=== PATIENT | male | born 1960 | race Caucasian/White ===

== ENCOUNTER 2019-11-29 20:15 | Observation (INO) | payer OTHER ==
[~2019-11-29] VITALS: Ht 170.2 cm; Wt 70.5 kg
[~2019-11-29 20:15] MED LIST: DIAZ5 PO; HYDACE5 PO
[2019-11-29 21:37] LABS: BASOPHILS ABSOLUTE AUTO 0.02 K/mm3 (0.00-0.23); BASOPHILS PERCENT AUTO 0 % (0-2); Hematocrit 39.9 % (37.0-53.0); Hemoglobin 12.8 g/dL (13.5-17.5); Mean Corpuscular HGB 33.2 pg (26.0-34.0); Mean Corpuscular HGB Conc 32.1 g/dL (31.5-36.5); Mean Corpuscular Volume 104 fL (80-100); Mean Platelet Volume 12.3 fL (9.1-12.4); RDW Coefficient Variation 15.2 % (11.7-14.2); RDW Standard Deviation 58.4 fL (35.1-46.3); Red Blood Cell Count 3.85 M/mm3 (4.30-5.90)
[2019-11-29 21:40] LABS: EOSINOPHILS PERCENT AUTO 0 % (0-6); IMMATURE GRAN ABSOLUTE AUTO 0.08 K/mm3 (0.00-0.10); IMMATURE GRAN PERCENT AUTO 1 % (0-1); LYMPHOCYTES ABSOLUTE AUTO 0.42 K/mm3 (0.84-5.20); LYMPHOCYTES PERCENT AUTO 7 % (21-46); MONOCYTES ABSOLUTE AUTO 0.67 K/mm3 (0.16-1.47); MONOCYTES PERCENT AUTO 11 % (4-13); NEUTROPHILS ABSOLUTE AUTO 5.21 K/mm3 (1.96-9.15); NEUTROPHILS PERCENT AUTO 81 % (41-73); Platelet Count 25 K/mm3 (150-400)
[2019-11-29 21:49] LABS: International Normalized Ratio 2.08; Prothrombin Time Results 21.4 Sec (9.7-11.5)
[2019-11-29 21:55] LABS: Alanine Aminotransfer (ALT/SGP 42 U/L (12-78); Albumin/Globulin Ratio 0.4 (0.8-1.8); Alk Phos 91 U/L (50-136); Anion Gap 7 mmol/L (6-16); Aspartate Aminotrans (AST/SGOT 70 U/L (12-37); Blood Urea Nitrogen 10 mg/dL (8-24); Bun/Creatinine Ratio 11.3 (12.0-20.0); CO2, Blood 25 mmol/L (21-32); Chloride, Blood 103 mmol/L (98-108); Creatinine, Blood 0.89 mg/dL (0.60-1.20); Globulin, Blood 4.7 g/dL (2.2-4.0); Glomerular Filtration Rate >60 (60-); Glucose, Blood 125 mg/dL (70-99); Potassium, Blood 3.6 mmol/L (3.5-5.5); Sodium, Blood 135 mmol/L (136-145); Total Protein, Blood 6.7 g/dL (6.4-8.2)
--- NOTE | 2019-11-30 03:12 | NUR ---
PATIENT IS A NEW ADMIT FROM THE ED. FOUR PERSON TRANSFER FROM [facility] TO BED. AXOX 3 AND ONE TO TWO ASSIST TO BSC. ON 2L O2 NC. PATIENT REPORTS LEFT HIP PAIN. CLEAR LIQUID DIET. PATIENT ORIENTED TO ROOM AND CALL LIGHT SYSTEM.
--- NOTE | 2019-11-30 03:16 | NUR ---
TELEMETRY PLACED AND TECH REPORTS NSR 80.
--- NOTE | 2019-11-30 03:17 | NUR ---
CONSULT CALLED INTO DR MORGAN ( [facility] ([place] ANSWERING SERVICE FOR BLEEDING PER RECTUM.
--- NOTE | 2019-11-30 05:00 | NUR ---
SHIFT SUMMARY PATIENT HAD NO ACUTE CHANGES SINCE ADMIT. AXOX 3 AND 1-2 ASSIST TO BR. ON 2L O2 NC AND RA BASELINE. REPORTED BACK PAIN AND RECEIVED TRAMADOL PER EMAR. PIV REMAINS INTACT. MANAGER EPIC REPORTS NSR 80. HX ETOH AND CEDS UP UNTIL ONE WEEK AGO PER PATIENT. CONSULT CALLED INTO DR MORGAN ANSWERING SERVICE AND REPORTS THEY WILL GIVE HIM MESSAGE AT 08:00. DENIES SOB AND N/V. VSS/AFEBRILE. CALL LIGHT IN REACH. BED IN LOWEST POSITION. WILL CONTINUE TO MONITOR UNTIL DAY SHIFT NURSE ASSUMES CARE.
[2019-11-30 06:13] LABS: BASOPHILS ABSOLUTE AUTO 0.01 K/mm3 (0.00-0.23); BASOPHILS PERCENT AUTO 0 % (0-2); Hematocrit 35.1 % (37.0-53.0); Hemoglobin 11.2 g/dL (13.5-17.5); Mean Corpuscular HGB 32.7 pg (26.0-34.0); Mean Corpuscular HGB Conc 31.9 g/dL (31.5-36.5); Mean Corpuscular Volume 102 fL (80-100); Mean Platelet Volume 12.4 fL (9.1-12.4); RDW Coefficient Variation 15.1 % (11.7-14.2); RDW Standard Deviation 56.8 fL (35.1-46.3); Red Blood Cell Count 3.43 M/mm3 (4.30-5.90); White Blood Cell Count 4.95 K/mm3 (4.00-11.30)
[2019-11-30 06:31] LABS: Anion Gap 5 mmol/L (6-16); Blood Urea Nitrogen 10 mg/dL (8-24); Bun/Creatinine Ratio 12.7 (12.0-20.0); CO2, Blood 25 mmol/L (21-32); Calcium, Blood 7.6 mg/dL (8.5-10.1); Chloride, Blood 106 mmol/L (98-108); Creatinine, Blood 0.79 mg/dL (0.60-1.20); Glomerular Filtration Rate >60 (60-); Glucose, Blood 119 mg/dL (70-99); Potassium, Blood 3.5 mmol/L (3.5-5.5); Sodium, Blood 136 mmol/L (136-145)
[2019-11-30 06:33] LABS: EOSINOPHILS PERCENT AUTO 0 % (0-6); IMMATURE GRAN ABSOLUTE AUTO 0.14 K/mm3 (0.00-0.10); IMMATURE GRAN PERCENT AUTO 3 % (0-1); LYMPHOCYTES ABSOLUTE AUTO 0.61 K/mm3 (0.84-5.20); LYMPHOCYTES PERCENT AUTO 12 % (21-46); MONOCYTES ABSOLUTE AUTO 0.68 K/mm3 (0.16-1.47); MONOCYTES PERCENT AUTO 14 % (4-13); NEUTROPHILS ABSOLUTE AUTO 3.51 K/mm3 (1.96-9.15); NEUTROPHILS PERCENT AUTO 71 % (41-73); Platelet Count 23 K/mm3 (150-400)
[2019-11-30 06:43] LABS: International Normalized Ratio 2.25
--- NOTE | 2019-11-30 07:41 | NUR ---
ASSUMED CARE AT 0700, REPORT FROM TONA CASTILLO. LAYING IN BED SUPINE LOW FOWLERS. A/A/OX4, PLAN OF CARE REVIEWED AT THIS TIME.
--- NOTE | 2019-11-30 11:51 | NUR ---
PATIENT ARRIVED ON MEDICAL FLOOR AT 1050. PATIENT IS ALERT AND ORIENTED AND COOPERATIVE WITH CARE. PATIENT IS CURRENTLY ON THE PHONE WITH HIS SIGNIFICANT OTHER.
[2019-11-30 12:40] LABS: Hematocrit 39.9 % (37.0-53.0); Hemoglobin 12.8 g/dL (13.5-17.5)
--- NOTE | 2019-11-30 17:55 | NUR ---
PATIENT IS ALERT AND ORIENTED AND COOPERATIVE WITH CARE. COMPLAINTS OF PAIN IN BACK AND LEFT HIP, TREATED PER EMAR. DR. MORGAN HAS SEEN THE PATIENT AND AN UPPER ENDOSCOPY WILL BE PERFORMED TOMORROW. PATIENT HAD A BM THIS AFTERNOON, LOOSE AND BROWN, NO BLOOD NOTED. BLOOD IN HIS URINE WAS NOTED. 1PA TO THE BATHROOM, HE IS A LITTLE UNSTEADY AND WEARS 2L O2 VIA NC. WILL CONTINUE TO MONITOR
[2019-12-01 04:42] LABS: Hematocrit 37.2 % (37.0-53.0); Hemoglobin 11.8 g/dL (13.5-17.5)
--- NOTE | 2019-12-01 07:41 | NUR ---
59 year old NAtaive Hungarian with alcoholism with liver disease is NPO except sips water & ice chips for upper endo today. He has co LT shoulder pain after fall at home. Ultram 50 mg helpful to relieve. no s/sx gi bleed this shift.
--- NOTE | 2019-12-01 10:54 | NUR ---
PHONE CALL SPOKE WITH PT'S SIGNIFICANT OTHER DOMINICK ON THE PHONE, SHE CAN BE CONTACTED ANYTIME AT [phone], PT GAVE PERMISSION TO SPEAK WITH HER, SHE REPORTED THAT SHE AND THE PT ARE CURRENTLY HOMELESS LIVING IN A TENT IN HER DAUGHTERS BACK YARD, WILL ORDER AIRCRAFT CYLINDER MECHANIC
--- NOTE | 2019-12-01 15:31 | NUR ---
12/01/19 1531 Paula Byrnes History, Chart, Medications and Allergies reviewed before start of procedure.PATIENT DETERMINED TO BE ASA APPROPRIATE FOR PROPOFOL SEDATION PRIOR TO START OF PROCEDURE BY .MONITOR INTACT WITH CONTINUOUS PULSE OXIMETRY AND INTERMITTENT BP.3-LEAD EKG REVIEWED WITH PHYSICIAN PRIOR TO START OF PROCEDURE.O2 VIA N/C INTACT THROUGHOUT SEDATION/PROCEDURE.
--- NOTE | 2019-12-01 16:10 | NUR ---
PROCEDURE PT BACK FROM PROCEDURE, GONE FOR ABOUT AN HOUR AND A HALF, PT ABLE TO STAND AND TRANSFER SELF FROM THE GURNEY TO THE BED, ON ROOM AIR AT THIS TIME
--- NOTE | 2019-12-01 17:36 | NUR ---
SUMMARY PT SITTING UP IN BED EATING DINNER, PT IS ALERT AND ORIENTED, ABLE TO FEED HIMSELF AND GET UP WITH 1P ASSIST, PT HAD AN UPPER ENDOSCOPY DONE WITH NO S/S ACTIVE BLEEDING, PT MED PER EMAR FOR PAIN IN HIS L SHOULDER, NO COMPLAINTS T/O THE DAY, VSS, NO ACUTE CHANGES, WILL CONT TO MONITOR
[2019-12-02 05:09] LABS: Hematocrit 36.8 % (37.0-53.0); Mean Corpuscular HGB 32.8 pg (26.0-34.0); Mean Corpuscular HGB Conc 32.6 g/dL (31.5-36.5); Mean Corpuscular Volume 101 fL (80-100); RDW Coefficient Variation 14.5 % (11.7-14.2); Red Blood Cell Count 3.66 M/mm3 (4.30-5.90); White Blood Cell Count 6.35 K/mm3 (4.00-11.30)
[2019-12-02 05:24] LABS: Anion Gap 5 mmol/L (6-16); Blood Urea Nitrogen 13 mg/dL (8-24); Bun/Creatinine Ratio 19.5 (12.0-20.0); CO2, Blood 26 mmol/L (21-32); Calcium, Blood 7.6 mg/dL (8.5-10.1); Chloride, Blood 104 mmol/L (98-108); Creatinine, Blood 0.67 mg/dL (0.60-1.20); Glomerular Filtration Rate >60 (60-); Glucose, Blood 126 mg/dL (70-99); Potassium, Blood 3.6 mmol/L (3.5-5.5); Sodium, Blood 135 mmol/L (136-145)
[2019-12-02 05:35] LABS: Mean Platelet Volume 13.1 fL (9.1-12.4); Platelet Count 25 K/mm3 (150-400)
--- NOTE | 2019-12-02 06:18 | NUR ---
SHIFT SUMMARY PT HAS RESTED WELL THIS SHIFT. PT CONTINUES TO HAVE BACK AND SHOULDER PAIN. MEDICATED WITH TRAMADOL. PT HAS DONE WELL POST OP. VITALS ARE STABLE WITH POST OP CHECKS. H&H CONTINUES TO TREND IN EXPECTED DIRECTION. PLAN IS FOR DC WITHIN THE NEXT FEW DAYS. NO ACUTE CHANGES TO REPORT OVERNIGHT. BED IN LOWEST POSITION, CALL LIGHT WITHIN REACH. WILL CONTINUE TO MONITOR AND REPORT TO ONCOMING RN.
--- NOTE | 2019-12-02 06:20 | NUR ---
LOW GRADE TEMP PT IS WRAPPED IN HEAVY BLANKETS AND TEMP IS BUMPED IN ROOM.
[2019-12-02] MEDS ORDERED: OMEP20ER PO (13:27)
[2019-12-02] MEDS ORDERED: ACET325 PO (13:28)
[2019-12-02] MEDS ORDERED: TRAM50 PO (13:28)
--- NOTE | 2019-12-02 13:49 | NUR ---
SUMMARY/DISCHARGE PT BEING DISCHARGED TO HOME, PT VERBALIZED UNDERSTANDING OF DISCHARGE INSTRUCTIONS REGARDING FOLLOW UP AND MEDICATIONS, PT GIVEN A NEW PATIENT PACKET FOR [employer], SPOKE WITH PT'S SIGNIFICANT OTHER DOMINICK ON THE PHONE, GAVE HER DISCHARGE INSTRUCTIONS WELL, SHE IS ON HER WAY HERE NOW
--- NOTE | 2019-12-02 14:10 | NUR ---
PT'S RIDE HERE, PT BEING TAKEN DOWN VIA WHEELCHAIR
== END 2019-12-02 14:10 | disposition home or self-care (01) ==
LOC: ER 20:15 → PCU 20:16 → MEDS 20:16 → PCU 11-30 01:43 → MEDS 11-30 10:50
PROVIDERS: Emergency Medicine; Internal Medicine; Internal Medicine Gastroenterology; ADMIT Family Medicine
PROC: 0W3P8ZZ Control Bleeding in Gastrointestinal Tract, Via Natural or Artificial Opening Endoscopic (ICD-10-PCS; principal; 2019-12-01 13:00)
DX: K55.21 Angiodysplasia of colon with hemorrhage (principal); K25.4 Chronic or unspecified gastric ulcer with hemorrhage; M48.53XA Collapsed vertebra, not elsewhere classified, cervicothoracic region, initial encounter for fracture; M25.512 Pain in left shoulder; E87.1 Hypo-osmolality and hyponatremia; D69.6 Thrombocytopenia, unspecified; W19.XXXA Unspecified fall, initial encounter; M25.552 Pain in left hip; I10 Essential (primary) hypertension; K74.60 Unspecified cirrhosis of liver; Z87.891 Personal history of nicotine dependence; Z79.899 Other long term (current) drug therapy
CPT/HCPCS: 36415; 51798; 72100; 73030; 73502; 74177; 80048; 80053; 82272; 82607; 82746; 85014; 85018; 85025; 85027; 85610; 86850; 86900; 86901; 96374; 96376; 99285-25; C9113; G0378; J2250; J2704; J7120; Q9967

== ENCOUNTER 2019-12-07 23:41 | Inpatient (IN) | payer OTHER ==
[~2019-12-07] VITALS: Ht 182.9 cm; Wt 72.4 kg
[~2019-12-07 23:41] MED LIST changes: +ACET325 PO; +OMEP20ER PO; +TRAM50 PO
[2019-12-08 00:08] LABS: Hematocrit 39.8 % (37.0-53.0); Hemoglobin 12.7 g/dL (13.5-17.5); Mean Corpuscular HGB Conc 31.9 g/dL (31.5-36.5); Mean Corpuscular Volume 103 fL (80-100); Mean Platelet Volume 11.4 fL (9.1-12.4); NRBC ABSOLUTE 0.02 K/mm3 (0.00-0.02); NRBC Auto 0.1 /100 WBC (0.0-0.2); RDW Coefficient Variation 15.5 % (11.7-14.2); RDW Standard Deviation 58.7 fL (35.1-46.3); Red Blood Cell Count 3.85 M/mm3 (4.30-5.90); White Blood Cell Count 37.36 K/mm3 (4.00-11.30)
[2019-12-08 00:10] LABS: Platelet Count 46 K/mm3 (150-400)
[2019-12-08 00:23] LABS: International Normalized Ratio 2.54; Prothrombin Time Results 25.8 Sec (9.7-11.5)
[2019-12-08 00:24] LABS: BAND PERCENT MAN 9 % (0-8); BASOPHILS PERCENT MAN 0 % (0-2); EOSINOPHILS PERCENT MAN 0 % (0-6); LYMPHOCYTES % ATYPICAL MANUAL 1 % (0-0); LYMPHOCYTES ABSOLUTE MAN 2.61 K/mm3 (0.84-5.20); LYMPHOCYTES PERCENT MAN 6 % (21-46); METAMYELOCYTE ABSOLUTE MAN 0.74 K/mm3 (0.00-0.00); METAMYELOCYTE PERCENT MAN 2 % (0-0); MONOCYTES ABSOLUTE MAN 1.12 K/mm3 (0.16-1.47); MONOCYTES PERCENT MAN 3 % (4-13); NEUTROPHILS ABSOLUTE MAN 32.87 K/mm3 (1.96-9.15); SEG NEUTROPHILS PERCENT MAN 79 % (41-73); TOTAL CELLS COUNTED 100
[2019-12-08 00:29] LABS: Alanine Aminotransfer (ALT/SGP 97 U/L (12-78); Albumin, Blood 1.4 g/dL (3.4-5.0); Albumin/Globulin Ratio 0.2 (0.8-1.8); Alk Phos 182 U/L (50-136); Anion Gap 13 mmol/L (6-16); Aspartate Aminotrans (AST/SGOT 188 U/L (12-37); Bilirubin, Total 11.7 mg/dL (0.1-1.0); Blood Urea Nitrogen 22 mg/dL (8-24); Bun/Creatinine Ratio 17.5 (12.0-20.0); CO2, Blood 20 mmol/L (21-32); Calcium, Blood 7.7 mg/dL (8.5-10.1); Chloride, Blood 100 mmol/L (98-108); Creatinine, Blood 1.26 mg/dL (0.60-1.20); Globulin, Blood 5.8 g/dL (2.2-4.0); Glomerular Filtration Rate >60 (60-); Glucose, Blood 76 mg/dL (70-99); Potassium, Blood 3.7 mmol/L (3.5-5.5); Sodium, Blood 133 mmol/L (136-145); Total Protein, Blood 7.2 g/dL (6.4-8.2)
[2019-12-08 00:38] LABS: Troponin I 0.773 ng/mL (0.000-0.040)
[2019-12-08 02:24] LABS: Magnesium, Blood 2.4 mg/dL (1.6-2.4)
[2019-12-08 02:32] LABS: PCO2 Arterial 50.4 mmHg (35-45); PO2 Arterial 93.4 mmHg (80-100); pH Blood Arterial 7.13 (7.35-7.45)
[2019-12-08 04:04] LABS: Hematocrit 29.3 % (37.0-53.0); Hemoglobin 9.1 g/dL (13.5-17.5)
--- NOTE | 2019-12-08 05:46 | NUR ---
SHIFT SUMMARY PATIENT ARRIVED TO ICU ROOM 7 @ 02:05 THIS AM. TREATING ACIDOSIS WITH BICARB DRIP, DR. ROMANO AWARE. ATTAMPTED OROGASTRIC TUBE PLACEMENT, HOWEVER WAS KINKED AT END OF ESOPHAGUS, REMOVED AND KEPT OUT PER DR. ROMANO. HAS BEEN BECOMING HYPOTHERMIC, DR. ROMANO AWARE, TREATING WITH WARM BLANKETS, WARMING ROOM. AM ATTEMPTING TO ASSESS NEURO STATUS, PROPOFOL PLACED ON STAND-BY @ 05:40, AM CONCERNED GIVEN CURRENT CORE BODY TEMPERATURE. ASSESSMENT IS CHARTED. VSS. WILL CONTINUE TO MONITOR.
[2019-12-08 06:04] LABS: Adenovirus Not Detected (NOT DETECT); Bordetella pertussis Not Detected (NOT DETECT); Chlamydophila pneumoniae Not Detected (NOT DETECT); Coronavirus 229E Not Detected (NOT DETECT); Coronavirus HKU1 Not Detected (NOT DETECT); Coronavirus NL63 Not Detected (NOT DETECT); Coronavirus OC43 Not Detected (NOT DETECT); Human Metapneumovirus Not Detected (NOT DETECT); Human Rhinovirus/Enterovirus Not Detected (NOT DETECT); Influenza A/2009-H1 Not Detected (NOT DETECT); Influenza A/H1 Not Detected (NOT DETECT); Influenza A/H3 Not Detected (NOT DETECT); Influenza B Not Detected (NOT DETECT); Mycoplasma pneumoniae Not Detected (NOT DETECT); Parainfluenza Virus 1 Not Detected (NOT DETECT); Parainfluenza Virus 2 Not Detected (NOT DETECT); Parainfluenza Virus 3 Not Detected (NOT DETECT); Parainfluenza Virus 4 Not Detected (NOT DETECT); Respiratory Syncytial Virus Not Detected (NOT DETECT)
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
[2019-12-08 07:21] LABS: Blood, Urine 5+ (Neg); Glucose Qualitative, Urine Neg (Neg); Ketones, Urine Neg (Neg); Leukocyte Esterase, Urine 1+ (Neg); Nitrite, Urine Pos (Neg); Protein, Urine 1+ (Neg); Urobilinogen, Urine 4+ (Normal)
[2019-12-08 07:52] LABS: Appearance, Urine Cloudy (Clear); Bilirubin, Urine 1+ (Neg); Color, Urine Amber (P-Yellow)
[2019-12-08 07:55] LABS: Amorphous Mod (0-Heavy); Bacteria Many /hpf; Squamous Epithelial Cells Mod /hpf (Few)
[2019-12-08 08:09] LABS: Hematocrit 27.9 % (37.0-53.0); Hemoglobin 8.5 g/dL (13.5-17.5); Mean Corpuscular HGB 32.4 pg (26.0-34.0); Mean Corpuscular HGB Conc 30.5 g/dL (31.5-36.5); Mean Platelet Volume 12.4 fL (9.1-12.4); NRBC ABSOLUTE 0.02 K/mm3 (0.00-0.02); RDW Coefficient Variation 18.6 % (11.7-14.2); Red Blood Cell Count 2.62 M/mm3 (4.30-5.90); White Blood Cell Count 40.46 K/mm3 (4.00-11.30)
--- NOTE | 2019-12-08 08:17 | NUR ---
Received report in room from Russell CARBONE. Patient is lightly sedated and intubated with 8.0 ET and 24 cm at lips with vent settings AC 16, TV 550, FiO2 80% and PEEP 5.0. RT was working with patient over last hour and attempted to take FiO2 to 60% but worked back up to current setting of 75% and sats 92%. Oral care performed and cleaned mckee and face. Placed OG in and placed to LIS and received brown old blood in small amounts. When suctioning ET geri red blood with minimal sputum. He does not track or make any meaninful meri movements other than head side to side. He was on Propofol at 2 mcg/kg min and increased just now to 5 mcg/kg/min. He has right subclavin CL dressing intact and site WNL's and is infusing:Protonix 10ml/hr, Octreotide at 25 ml/hr, Levophed at 15mcg/min started at 0730 for systolics in the 60's and currently 119. He has 20ga LAC dressing intact and site WNL's and is infusing NS TKO and 2nd FFP. He has 18ga RFA dressing intact and site WNL's and is infusing Propofol at 5 mcg/kg/min and Bicarb gtt at 100ml/hr. He has 16 Fr. temp robbins draining to gravity with <10ml dark yellow urine. He has SCD's bilaterally. He has soft bilateral wrist restraints, circulation and skin checked. Dr Bright in room with patient and is currently ordering 2 more FFP and 2 more PRBC
[2019-12-08 08:19] LABS: Mean Corpuscular Volume 107 fL (80-100)
[2019-12-08 08:21] LABS: Platelet Count 40 K/mm3 (150-400)
[2019-12-08 08:39] LABS: BAND PERCENT MAN 9 % (0-8); BASOPHILS PERCENT MAN 0 % (0-2); EOSINOPHILS PERCENT MAN 0 % (0-6); LYMPHOCYTES ABSOLUTE MAN 1.61 K/mm3 (0.84-5.20); LYMPHOCYTES PERCENT MAN 4 % (21-46); MONOCYTES ABSOLUTE MAN 2.83 K/mm3 (0.16-1.47); MONOCYTES PERCENT MAN 7 % (4-13); SEG NEUTROPHILS PERCENT MAN 80 % (41-73); TOTAL CELLS COUNTED 100
[2019-12-08 08:53] LABS: Albumin, Blood 1.4 g/dL (3.4-5.0); Albumin/Globulin Ratio 0.4 (0.8-1.8); Bilirubin, Total 9.1 mg/dL (0.1-1.0); Bun/Creatinine Ratio 14.8 (12.0-20.0); Calcium, Blood 7.1 mg/dL (8.5-10.1); Creatinine, Blood 1.62 mg/dL (0.60-1.20); Globulin, Blood 3.6 g/dL (2.2-4.0); Potassium, Blood 4.2 mmol/L (3.5-5.5); Troponin I 2.5 ng/mL (0.000-0.040)
--- NOTE | 2019-12-08 09:30 | NUR ---
Finished with small bronch and found left side past leisa lots of blood and clots and is calling scope team in to use larger scope. Patient on left side and geri red blood coming from ET. first two FFP in and a toltal of two PRBC. Propofol titrated to 40 mcg/kg/min, Levophed increased up to 20 mcg/min and systolic 100's. Vent settings AC 16, TV 550, FiO2 100% and PEEP 8. sats low 90%'s
--- NOTE | 2019-12-08 10:59 | NUR ---
Pt declining full ventilatory suppoet. bronch in progress to control pulmonary bleed. nurse spoke briefly with next of kin they are supposed to call back. called his ex phone not working, called the nex person on list phone not working. called [facility] and they did not have contact information. Called [email or web address] and gave me another number that reached his wifes daughter. She contacted her mother who is patients they are separted but still incontact . She called and nurse gave her update on condition and proceducre. pt prognositic scores low. full hemodaynamic support.
--- NOTE | 2019-12-08 11:30 | NUR ---
Dr Bright and bronch team still working on clearint tissue, clots and liquid blood, almost done. Vent setting same as last note. Vasopressin started at 1015, Just turned Levophed down to 14 mcg/min and systolic 120's and MAP 70, Propofol remains at 40mcg/kg/min, Protonix at 10ml/hr, Octreotide 25ml/hr, bicarb at 100 ml/hr. Temp up to 96.7. Third PRBC started and half way done, plus two more FFP and one PLT.
--- NOTE | 2019-12-08 12:00 | NUR ---
Bronch done and am waiting for Dr Bright to communicate for Dr Denis to do upper GI scope.
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
--- NOTE | 2019-12-08 13:47 | NUR ---
12/08/19 [id number] Garrick Reyes History, Chart, Medications and Allergies reviewed before start of procedure.MONITOR INTACT WITH CONTINUOUS PULSE OXIMETRY AND INTERMITTENT BP.3-LEAD EKG REVIEWED WITH PHYSICIAN PRIOR TO START OF PROCEDURE.PT VENTILATED WITH PROPFOL GTT INFUSING AND TITRATED PER ENVIRONMENTAL HEALTH AND SAFETY MANAGER.
--- NOTE | 2019-12-08 14:30 | NUR ---
Patient bronched for third time with Dr Bright and tico GAYLE and resemic epi instilled with nebulized TXA. Patient continues to be on left side and drains geri red blood from ET. Levophed titrated down to 5 mcg/min and vasopressin continues. Sedation remains Propofol at 40mcg/kg/min and vent settings AC 16, TV 550, FiO2 60%, PEEP 5.0 with sats 97%.
--- NOTE | 2019-12-08 15:33 | NUR ---
Echo done. Significant other is in room and would like to Dr Bright about comfort care. Patient resting on sedation. He continues to have geri blood from ET small amounts. Sun has approx 90 mls dark tea colored urine.
--- NOTE | 2019-12-08 15:54 | NUR ---
Echocardiogram completed.
--- NOTE | 2019-12-08 16:46 | NUR ---
Dr Bright spoke with max canales/LUL and made comfort care and extubated at 1630. Patient currently agonal breathing with family at bedside. HR starting to edouard in the 50's. Pressors off. Medicated with 8mg morphine.
--- NOTE | 2019-12-08 17:38 | NUR ---
Patient passed at 1700 asystole, significant other at bedside. CN making calls and arrange movement of patient.
--- NOTE | 2019-12-08 19:58 | NUR ---
pt extubated and passed SO at bedside. supportive care declined chaplian assisted with funneral plan. she took his jewlery and belonginings with her. follow up care offered.
== END 2019-12-08 17:00 | DRG 871 ==
LOC: ER 23:41 → ICUW 12-08 01:11 → ICUE 12-08 01:11
PROVIDERS: Emergency Medicine; Internal Medicine Critical Care Medicine; Internal Medicine Gastroenterology; ADMIT Internal Medicine
PROC: 0BC28ZZ Extirpation of Matter from Carina, Via Natural or Artificial Opening Endoscopic (ICD-10-PCS; 2019-12-08)
PROC: 3E0F8GC Introduction of Other Therapeutic Substance into Respiratory Tract, Via Natural or Artificial Opening Endoscopic (ICD-10-PCS; 2019-12-08)
PROC: 0W3P8ZZ Control Bleeding in Gastrointestinal Tract, Via Natural or Artificial Opening Endoscopic (ICD-10-PCS; 2019-12-08)
PROC: 3E033XZ Introduction of Vasopressor into Peripheral Vein, Percutaneous Approach (ICD-10-PCS; 2019-12-08)
PROC: 0BH18EZ Insertion of Endotracheal Airway into Trachea, Via Natural or Artificial Opening Endoscopic (ICD-10-PCS; 2019-12-08)
PROC: 5A1935Z Respiratory Ventilation, Less than 24 Consecutive Hours (ICD-10-PCS; 2019-12-08)
PROC: 30233K1 Transfusion of Nonautologous Frozen Plasma into Peripheral Vein, Percutaneous Approach (ICD-10-PCS; principal; 2019-12-08 10:30)
PROC: 30233N1 Transfusion of Nonautologous Red Blood Cells into Peripheral Vein, Percutaneous Approach (ICD-10-PCS; 2019-12-08 10:30)
DX: A41.9 Sepsis, unspecified organism (principal); J96.01 Acute respiratory failure with hypoxia; J69.0 Pneumonitis due to inhalation of food and vomit; R65.21 Severe sepsis with septic shock; J96.02 Acute respiratory failure with hypercapnia; I21.A1 Myocardial infarction type 2; R64 Cachexia; E87.1 Hypo-osmolality and hyponatremia; N17.9 Acute kidney failure, unspecified; D62 Acute posthemorrhagic anemia; E87.4 Mixed disorder of acid-base balance; Z51.5 Encounter for palliative care; F10.20 Alcohol dependence, uncomplicated; K70.10 Alcoholic hepatitis without ascites; R62.7 Adult failure to thrive; E86.0 Dehydration; E88.09 Other disorders of plasma-protein metabolism, not elsewhere classified; K70.30 Alcoholic cirrhosis of liver without ascites; Z68.23 Body mass index [BMI] 23.0-23.9, adult; Z96.652 Presence of left artificial knee joint; D69.6 Thrombocytopenia, unspecified; Z20.828 Contact with and (suspected) exposure to other viral communicable diseases
CPT/HCPCS: 0099U; 31500; 31720; 36415; 36430; 36600; 51702; 71045; 80053; 81001; 82550; 82803; 83735; 84484; 85014; 85018; 85025; 85610; 86850; 86900; 86901; 86923; 87086; 88305; 88312; 93005; 93010; 93306; 94002; 94003; 94770; 96365; 96366; 96367; 96376; 99285-25; C1751; C9113; J0456; J0696; J1956; J2270; J2354; J2543; J2704; J3010; J3370; J7030; J7050; J7070; P9016; P9035; P9046; P9059; U0002